=== PATIENT | male | born 1975 | race Caucasian/White ===

== ENCOUNTER 2021-11-09 09:10 | Emergency (ER) | payer OTHER, SELFPAY ==
[2021-11-09 09:13] VITALS: BP 152/92; PULSE 66; RESP 18; TEMP 36.8; O2SAT 98; BMI 31.5
[2021-11-09 09:22] VITALS: BP 152/92; PULSE 64
[2021-11-09] MEDS: EPINEPHrine 1 MG/ML VIAL 0.3 MG IM (09:22)
[2021-11-09] MEDS: diphenhydrAMINE HCL 50 MG/ML VIAL IVPUSH (09:26)
[2021-11-09] MEDS: Famotidine/PF 20 MG/2 ML VIAL IVPUSH (09:30)
[2021-11-09] MEDS: methylPREDNISolone Sod Succ 125 MG/2 ML VIAL IVPUSH (09:30)
[2021-11-09 10:29] VITALS: PULSE 73; RESP 17; O2SAT 95
--- NOTE | 2021-11-09 10:46 | ED.ALLEREA ---
HPI - Allergic Reaction General Chief complaint: Allergic Reaction Stated complaint: bee sting at work Time Seen by Provider: 11/09/21 09:16 Source: patient Mode of arrival: ambulatory History of Present Illness HPI narrative: 46-year-old male with past medical history of anaphylaxis to bee stings presenting to the ED s/p being stung by bee on left thumb 10 minutes [employer]. Patient reports he does not carry his EpiPen around as gets too hot in his truck. Reports throat closing/tightness sensation at present. Reports last incident was 3-4 years ago and reaction took about 45 minutes progress and then he received epinephrine. Denies rash/hives, shortness of breath, chest pain, cough, wheezing MD complaint: allergic reaction Onset (ago): minute(s) Exposure: insect bite Related Data Allergies Allergy/AdvReac Type Severity Reaction Status Date / Time bee pollen [bee stings] Allergy Anaphylaxis Verified 11/09/21 09:13 peanut Allergy Anaphylaxis Verified 11/09/21 09:17 cotton candy grapes Allergy Anaphylaxis Uncoded 11/09/21 09:17 Review of Systems Review of Systems: Constitutional: No Fever, No Chills, No Fatigue, No Malaise ENT/Mouth: No Ear Pain, No Nasal Congestion, + throat closing sensation, No Rhinorrhea, No Swallowing Difficulty Eyes: No Eye Pain, No Swelling, No Redness, No Vision Changes Cardiovascular: No Chest Pain, No SOB, No Dyspnea on Exertion, No Edema Respiratory: No Cough, No Sputum, No Dyspnea Gastrointestinal: No Nausea, No Vomiting, No Abdominal pain Genitourinary: No Dysuria, No Hematuria, No Urinary Incontinence/retention Musculoskeletal: No joint pain, No Myalgias, No Joint Swelling Skin: No Skin Lesions, No rash Neuro: No Weakness, No Numbness, No Paresthesias, No Dizziness, No Headache Yes all other systems are reviewed and are negative FOR[facility]LY [facility], [facility] Past Medical History Attestation statement: The following information was validated with the patient. Social History Social History Advance Directives: No Advance Directives Information Provided: No Physical Exam ED Vital Signs: Vital Signs - 24 hr 11/09/21 09:13 11/09/21 09:22 11/09/21 10:29 Temperature 98.2 F Pulse Rate 66 64 73 Respiratory Rate 18 17 Blood Pressure 152/92 H 152/92 H Pulse Oximetry 98 95 Oxygen Delivery Method Room Air Room Air BMI result Body Mass Index 31.5 Const General: cooperative, healthy appearing, no acute distress, alert, awake and Physically active Orientation/consciousness: patient oriented x3 Limitations: no limitations HENMT Head: Yes normal to inspection and Yes atraumatic Ears: hearing grossly normal bilaterally General nose exam: Normal external nose present Face and sinus: Yes normal facial exam Mouth: Normal oral and palatal mucosa present Throat: Yes posterior oropharynx normal, Yes tonsils normal, Yes uvula midline, No peritonsillar mass, No uvula laterally displaced and No uvular edema Eyes General: appearance normal, both eyes and all related structures EOM: EOMs intact bilaterally Neck Neck: Yes normal visual inspection and Yes no meningeal signs Resp Effort & Inspection: normal respiratory effort, not labored, no respiratory distress, no stridor and not tachypneic Auscultation: clear to auscultation bilaterally, no crackles, no rales, no rhonchi and no wheezes Cardio Rate: regular rate Heart sounds: S1 normal heart sound present and S2 normal heart sound present GI Inspection: Yes normal to inspection Palpation (GI): Soft to palpation and nontender Skin Rashes: no rashes Wounds: no wounds Neuro General: patient oriented x3, tone normal and no meningeal signs Gait exam (Neuro): Normal gait present Extrem General: Yes normal to inspection Course Course Course Narrative: Patient resting comfortably, reports symptomatic improvement 1058--on re-evaluation (1.5hrs after patient received EpiPen) reports symptomatic improvement/resolution. Denies throat closing sensation/oral swelling. Talking in complete sentences. No appreciable swelling, exam is benign. Discussed with patient importance of carrying EpiPen on him, p.r.noreen Cooley, and PCP follow-up. Discussed worrisome signs and symptoms and when to return to the emergency department MDM - Allergic Reaction MDM Narrative Medical decision making narrative: 46-year-old male with past medical history of anaphylaxis to bee stings presenting to the ED s/p being stung by bee on left thumb 10 minutes [employer]. On exam vital signs stable, NAD, nontoxic appearing, talking in complete sentences, no respiratory distress, no appreciable intraoral swelling or hives/rash. No angioedema. Concern for precautions anaphylaxis vs allergic reaction. No appreciable localized reaction Due to patient's previous delayed anaphylactic reaction will give EpiPen, Benadryl, Solu-Medrol, and Pepcid and observe/re-evaluate Differential Diagnosis Differential diagnosis: Likely anaphylaxis, allergic reaction and angioedema Medical Records Attestation: I reviewed the patient's medical records. Lab Data Attestation: I reviewed the patient's lab results. Critical Care Time Critical Care Time Critical Care Time: Yes Total Critical Care Time: 35 Attestation: I have personally provided critical care time exclusive of time spent on separately billable procedures. Time includes review of lab data, radiology results, discussion with consultants, and monitoring for potential decompensation. Intervention performed as documented. Discharge Plan Discharge Clinical Impression: Allergic reaction Patient Disposition: Home, Self-Care Instructions: Anaphylaxis (ED) Additional Instructions: You were given an EpiPen, Benadryl, and a steroid today in the emergency department for your allergic reaction It is recommended he care your EpiPen on you. Also take Benadryl as needed for allergic reaction symptoms. If you develop shortness of breath, throat closing sensation, throat swelling, hives, wheezing return to the ED immediately Referrals: Physician,Nonstaff [Primary Care Provider] - 3 days Stand Alone Forms: Work/School Release
== END 2021-11-09 11:06 | disposition home or self-care (01) ==
PROVIDERS: Emergency Provider Emergency Medicine
DX: T63.441A Toxic effect of venom of bees, accidental (unintentional), initial encounter (principal); Y93.9 Activity, unspecified; Y92.9 Unspecified place or not applicable; Y99.9 Unspecified external cause status
CPT/HCPCS: 96372; 96374; 96375; 99283; 99284; J0171; J1200; J2930